=== PATIENT | female | born 1975 | race Caucasian/White ===

== ENCOUNTER 2024-08-15 05:55 | Emergency (ER) | payer OTHER, SELFPAY ==
--- NOTE | 2024-08-15 | ECG_ITS ---
Test Reason : NAUSEA/VOMITING Blood Pressure : */* mmHG Vent. Rate : 110 BPM Atrial Rate : 110 BPM P-R Int : 128 ms QRS Dur : 74 ms QT Int : 322 ms P-R-T Axes : 27 144 143 degrees QTcB Int : 435 ms Sinus tachycardia Lateral infarct , age undetermined Abnormal ECG No previous ECGs available Referred By: Generic ED Physician Electronically Signed By: Wilfrido Daley
--- NOTE | ~2024-08-15 | CT_ITS ---
EXAMINATION: CT ABDOMEN AND PELVIS WITH CONTRAST CLINICAL INFORMATION: Right upper quadrant pain. Gastric sleeve. Concerning biliary disease. COMPARISON: None available. TECHNIQUE: Multidetector volumetric images were obtained from the superior aspect of the liver through the pubic symphysis following administration 85 mL of Omnipaque 350 intravenous contrast. Sagittal and coronal reformatted images were obtained on the technologist's workstation. Oral contrast: No This CT examination was performed using dose optimization techniques as appropriate, variously including the following: *Automated exposure control *Adjustment of mA and/or kV according to patient size (this includes techniques or standardized protocols for targeted exams where dose is matched to indication/reason for exam; i.e. extremities or head) *Use of iterative reconstruction technique. DLP: 644 mGy centimeter. FINDINGS: LUNG BASES: Pulmonary patchy groundglass, lung bases. LIVER, GALLBLADDER, AND BILIARY TREE: Liver measures 17 cm. No focal mass. Portal veins, hepatic veins and intrahepatic portion of the IVC are patent. Gallbladder is fluid-filled nondistended. No pericholecystic fluid collection or gallbladder wall thickening. No intrahepatic or extrahepatic biliary ductal dilatation. PANCREAS: No focal mass. No main pancreatic ductal dilatation. No peripancreatic fluid collection. SPLEEN: 9 cm. No focal mass. ADRENAL GLANDS: No nodular lesions. KIDNEYS AND URETERS: Normal enhancement pattern of the kidneys. No renal mass. No hydronephrosis. BLADDER: Fluid-filled. GASTROINTESTINAL TRACT: Sutures along the fundus and proximal body of the stomach extending through the diaphragmatic hiatus/intrathoracic. Abundant stool. No intestinal obstruction pattern. Gas and fluid-filled small bowel loops. No pneumatosis intestinalis. Appendix is normal. No pneumoperitoneum. Scattered diverticula, left hemicolon. No fluid collections in the peritoneal cavity. No gross ascites. ABDOMINAL WALL: Small fat-containing left femoral hernia. LYMPH NODES: Nonspecific mildly prominent lymph nodes, mesenteric and retroperitoneum. VASCULAR: No aneurysm or dissection, abdominal aorta. Calcified plaques in the proximal common femoral arteries. PELVIC VISCERA: There is a 3 cm subserosal pedunculated soft tissue lesion to the right of the fundus of the uterus. There is a T-shaped contraceptive device in place. OSSEOUS STRUCTURES: Multilevel thoracolumbar spondylosis. Bilateral neuroforamina narrowing, L4-5 and to a lesser extent L5-S1 on a degenerative basis.. Sclerosis and the sacroiliac joints. CT/CT abdomen pelvis w IV con IMPRESSION: Status post gastric sleeve extending through the diaphragmatic hiatus/intrathoracic. Hepatomegaly. Consider mild enteritis in the correct clinical settings. 3 cm subserosal uterine fibroid. Atelectasis versus airspace disease, lung bases Spondylosis L4-5 and L5-S1.. Fleischner guidelines were followed. Electronically signed by: Pino García MD 08/15/2024 10:00 AM L[facility]
[2024-08-15 05:56] VITALS: BP 145/83; PULSE 124; RESP 20; TEMP 36.8; O2SAT 96; BMI 31.6
[2024-08-15 06:23] LABS: Hemoglobin 14.7 g/dl (12.0-16.0); Mean Corpuscular Hemoglobin 32.7 pg (27.0-33.0); Neutrophils Percent Auto 92.8 % (45-73); PLT CLUMP 1; SCAN SMEAR FLAG 1
[2024-08-15 06:24] LABS: Basophils Percent Auto 0.2 % (0-2); Hematocrit 41.8 % (37.0-47.0); Imm Gran Abs Auto 0.03 X10*3/uL (0.00-0.03); Imm Gran Pct Auto 0.3 % (0.0-0.4); Lymphocytes Absolute Auto 0.2 X10*3/uL (1.2-4.9); Lymphocytes Percent Auto 2.2 % (20-40); MANUAL DIFF FLAG SCAN; Mean Corpuscular HGB Conc 35.2 g/dl (31.0-35.0); Mean Corpuscular Volume 92.9 fL (80.0-98.0); Mean Platelet Volume 9.4 fL (9.4-12.3); Monocytes Absolute Auto 0.5 X10*3/uL (0.1-1.2); Monocytes Percent Auto 4.5 % (2-11); Neutrophils Absolute Auto 9.3 x10*3/uL (2.0-8.3); Red Cell Distribution Width 12.7 % (11.0-16.0)
--- NOTE | 2024-08-15 06:38 | ED_ITS ---
HPI - Nausea/Vomiting/Diarrhea General Chief complaint: Nausea/Vomiting/Diarrhea Stated complaint: vomiting, right abd pain, diarrhea Time Seen by Provider: 08/15/24 06:24 Source: patient Mode of arrival: ambulatory Limitations: no limitations History of Present Illness ED Provider: Dr. 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 Jones who presents emergency department for evaluation of nausea, vomiting, diarrhea, sweats and right upper quadrant abdominal pain radiating to her right shoulder. The patient states that at 01:00 hours she developed nausea and vomited multiple times. She also had multiple episodes of diarrhea. She developed sweats and chills. She then developed right upper quadrant pain that radiated to her right shoulder. The patient states she did have biliary colic 4 years ago and the pain felt similar to today's pain. She also states that she was having severe GERD/heartburn symptoms at this time. Patient states that she can does not do well with narcotic medications since they cause pruritus and hives. 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 She denies tobacco use. She rarely drinks alcohol. Social History Social History Advance Directives: Yes Advance Directives on File: No Do you have a plan to hurt others: No Plan Physical Exam 2 Vital Signs: Vital Signs: Last Vital Signs Temp 98.2 F 08/15/24 08:02 Pulse 95 08/15/24 08:02 Resp 18 08/15/24 08:02 BP 121/58 L 08/15/24 08:02 Pulse Ox 97 08/15/24 08:02 O2 Del Method Room Air 08/15/24 08:02 BMI result Body Mass Index 31.6 Vital signs revealed an elevated heart rate of 124, elevated blood pressure of 145/83. Exam: General: Awake, alert , patient was dry heaving when I was examining her Head: Normocephalic, atraumatic EENT: PERRL, Lids normal, sclera normal, conjunctiva normal, nose normal , ears normal, throat without erythema or exudates Neck: Supple, no adenopathy Lung: breath sounds symmetric, no wheezing, rales or rhonchi Chest: symmetric movement, nontender Heart: regular rate and rhythm, normal S1, S2 no murmurs or rubs Abdomen: soft, moderate right upper quadrant tenderness, mild to moderate epigastric tenderness, negative Alvarado sign, no rebound, no voluntary or involuntary guarding, normoactive bowel sounds Back: no vertebral tenderness, no CVAT Extremities: no deformities, moves all extremities symmetrically Neuro: Awake, alert, oriented, normal speech, cranial nerves intact, moves all extremities symmetrically Psych: Pleasant, cooperative Medications Administered Discontinued Medications Generic Name Dose Route Start Last Admin Trade Name Freq PRN Reason Stop Dose Admin Diphenhydramine HCl 25 mg 08/15/24 07:13 08/15/24 07:26 Diphenhydramine Hcl 50 Mg/Ml Vial IVPUSH 08/15/24 07:14 25 mg ONCE ONE Administration Morphine Sulfate 4 mg 08/15/24 07:13 08/15/24 07:25 Morphine Sulfate 4 Mg/Ml Cartridge IVPUSH 08/15/24 07:14 4 mg ONCE STA Administration Protocol Ondansetron HCl 4 mg 08/15/24 06:31 08/15/24 06:40 Ondansetron Hcl 4 Mg/2 Ml Vial IVPUSH 08/15/24 06:32 4 mg ONCE ONE Administration Pantoprazole Sodium 40 mg 08/15/24 06:31 08/15/24 06:40 Pantoprazole Sodium 40 Mg/10 Ml Vial IVPUSH 08/15/24 06:32 40 mg ONCE ONE Administration Medical Decision Making Medical Decision Making MDM Narrative: 49-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 Jones who presents emergency department for evaluation of nausea, vomiting, diarrhea, sweats and right upper quadrant abdominal pain radiating to her right shoulder. The patient states that at 01:00 hours she developed nausea and vomited multiple times. She also had multiple episodes of diarrhea. She developed sweats and chills. She then developed right upper quadrant pain that radiated to her right shoulder. She also complains of heartburn like symptoms consistent with her GERD. Vital signs revealed an elevated heart rate and elevated blood pressure. Physical exam revealed right upper quadrant tenderness with a negative Alvarado sign and epigastric tenderness. Differential diagnosis: ?Includes but is not limited to biliary colic, acute cholecystitis, pancreatitis, diverticulitis, gastritis, viral syndrome, anemia, electrolyte abnormalities Patient was initially treated with the following: Zofran 4 mg IV, Protonix 40 mg IV, normal saline x1 L Course: 08:07 My interpretation patient's laboratory evaluation is as follows: CBC was normal. CMP is pending re-collection secondary to hemolysis The patient got minimal relief with the above treatment. Patient states that morphine causes a histamine release in her and make sure itchy therefore she was given Benadryl 25 mg IV and morphine 4 mg IV with significant relief for pain. At the end of my shift, patient's laboratory evaluation in CT scan of the abdomen pelvis with IV contrast is pending therefore the patient's care was turned over to my colleague, Dr. Garrick Mckeon Admission/Observation Consideration of admission/observation: Escalation of care including admission/observation considered (Yes) Lab Data MDM Lab Attestation statement: I reviewed the patient's lab results. 08/15/24 06:18 08/15/24 06:18 Labs: Lab Results 08/15/24 08/15/24 08/15/24 Range/Units 06:14 06:18 06:40 WBC 10.0 (4.8-10.8) X10*3/uL RBC 4.50 (4.20-5.50) X10*6/uL Hgb 14.7 (12.0-16.0) g/dl Hct 41.8 (37.0-47.0) % MCV 92.9 (80.0-98.0) fL MCH 32.7 (27.0-33.0) pg MCHC 35.2 H (31.0-35.0) g/dl RDW 12.7 (11.0-16.0) % Plt Count 203 (160-400) X10*3/uL MPV 9.4 (9.4-12.3) fL Immature Gran % (Auto) 0.3 (0.0-0.4) % Neut % (Auto) 92.8 H (45-73) % Lymph % (Auto) 2.2 L (20-40) % Spalding % (Auto) 4.5 (2-11) % Eos % (Auto) 0.0 (0-4) % Baso % (Auto) 0.2 (0-2) % Lymph # (Auto) 0.2 L (1.2-4.9) X10*3/uL Spalding # (Auto) 0.5 (0.1-1.2) X10*3/uL Eos # (Auto) 0.0 (0.0-0.4) X10*3/uL Baso # (Auto) 0.0 (0.0-0.2) X10*3/uL Abs Immat Gran (auto) 0.03 (0.00-0.03) X10*3/uL Absolute Neuts (auto) 9.3 H (2.0-8.3) x10*3/uL Absolute Nucleated RBC 0.000 (0.0-0.012) X10*3/uL Nucleated RBC % (auto) 0.0 (0.0-0.2) /100WBC Smear Tech's Comments VERIFIED Hold Purple Top SEE NOTE Influenza Type A (PCR) NEGATIVE (Negative) Influenza Type B (PCR) NEGATIVE (Negative) RSV RNA Qual (PCR) NEGATIVE (Negative) SARS-CoV-2 RNA (RT-PCR) NEGATIVE (Negative) Chronic Conditions Patient?s care impacted by: Other (GERD) Discharge Plan Discharge Clinical Impression: Abdominal pain, Nausea & vomiting, Diarrhea Patient Disposition: Still a Patient Print Language: Estonian
[2024-08-15] MEDS: Pantoprazole Sodium 40 MG/10 ML VIAL IVPUSH (06:40)
[2024-08-15] MEDS: ondansetron HCL 4 MG/2 ML VIAL IVPUSH (06:40)
[2024-08-15 06:43] LABS: Platelet Count 203 X10*3/uL (160-400)
[2024-08-15 06:44] LABS: SLIDE REVIEW VERIFIED
[2024-08-15 07:01] LABS: Influenza A PCR NEGATIVE (Negative); Influenza B PCR NEGATIVE (Negative); Resp Syncy Virus RNA Qual PCR NEGATIVE (Negative); SARS COV2 PCR INHOUSE NEGATIVE (Negative)
[2024-08-15 07:12] LABS: Estimated Glomerular Filt Rate > 60
[2024-08-15] MEDS: Morphine Sulfate 4 MG/ML CARTRIDGE IVPUSH (07:25)
[2024-08-15] MEDS: diphenhydrAMINE HCL 50 MG/ML VIAL 25 MG IVPUSH (07:26)
[2024-08-15 08:02] VITALS: BP 121/58; PULSE 95; RESP 18; TEMP 36.8; O2SAT 97
[2024-08-15 08:33] LABS: Alanine Aminotransferase 18 U/L (0-31); Albumin Level 3.6 g/dL (3.5-5.0); Alkaline Phosphatase 58 U/L (39-117); Anion Gap 9 (12-20); Aspartate Amino Transferase 24 U/L (5-31); Bilirubin Direct 0.3 mg/dL (0.0-0.5); Bilirubin Total 0.8 mg/dL (0.0-1.0); Blood Urea Nitrogen 14 mg/dL (9-16); Carbon Dioxide 22 mmol/L (22-29); Chloride 115 mmol/L (96-108); Creatinine Clr Calc Pharmacy 92.2; Glucose Random 113 mg/dL (60-115); Lipase 21 U/L (8-78); Sodium 142 mmol/L (135-145); Total Protein 5.9 g/dL (6.5-8.0)
[2024-08-15] MEDS: iohexoL 350 MG/ML 100 ML INFUS..BTL IV (09:13)
[2024-08-15 09:39] LABS: HCG Quantitative 3 mIU/mL
[2024-08-15 09:48] LABS: Appearance Urine Clear; Color Urine Dark Yellow; Glucose Urine UA Negative (Negative); Leukocyte Esterase Urine Negative (Negative); Nitrite Urine Negative (Negative); PH 5.5 (5.0-9.0); Specific Gravity - Urine >= 1.030 (1.005-1.025); Urine Blood Negative (Negative); Urine Ketones Trace mg/dL (Negative); Urine Protein Negative (Neg-Trace)
--- NOTE | 2024-08-15 09:57 | PC.NURSE ---
Assumed care of this patient at 0900, patient resting quietly on stretcher at this time, denies pain, waiting on CT scan results.
[2024-08-15 10:27] VITALS: BP 133/72; PULSE 97; RESP 16; TEMP 36.5; O2SAT 97
== END 2024-08-15 10:28 | disposition home or self-care (01) ==
PROVIDERS: Emergency Medicine Emergency Medical Services; Emergency Provider Student in an Organized Health Care Education/Training Program; PCP Internal Medicine
DX: R10.11 Right upper quadrant pain (principal); R11.2 Nausea with vomiting, unspecified; M25.511 Pain in right shoulder; R10.2 Pelvic and perineal pain; R00.0 Tachycardia, unspecified; Z98.84 Bariatric surgery status; Z79.899 Other long term (current) drug therapy; Z03.818 Encounter for observation for suspected exposure to other biological agents ruled out
CPT/HCPCS: 0241U; 74177; 80053; 81003; 82248; 83690; 84702; 85025; 93005; 96374; 96375; 99284; 99285; J1200; J2270; J2405; J2470; Q9967

== ENCOUNTER → 2024-08-15 06:12 | Outpatient (BNV) | payer OTHER, SELFPAY | PROVIDERS: Emergency Provider Student in an Organized Health Care Education/Training Program; PCP Internal Medicine; Visit Provider Internal Medicine Cardiovascular Disease | DX: R00.0 Tachycardia, unspecified (principal); R94.31 Abnormal electrocardiogram [ECG] [EKG] | CPT/HCPCS: 93010 ==

== ENCOUNTER → 2024-08-15 06:32 | Outpatient (BNV) | payer SELFPAY | PROVIDERS: Emergency Provider Student in an Organized Health Care Education/Training Program; PCP Internal Medicine; Visit Provider Radiology Diagnostic Radiology | DX: D25.2 Subserosal leiomyoma of uterus (principal); R16.0 Hepatomegaly, not elsewhere classified; M47.817 Spondylosis without myelopathy or radiculopathy, lumbosacral region | CPT/HCPCS: 74177 ==

== ENCOUNTER 2024-11-14 07:28 | Outpatient (REF) | payer OTHER, SELFPAY ==
--- OUTSIDE RECORDS SUMMARY | 2024-11-14 07:32 | XMS_ITS | Clinical Summary ---
Author Organization [facility] Address [address] [place] [address] Care Team Providers Care Toolmaker Name Role Phone Homer Neal Primary Care Provider [phone] Allergies Active Allergy Reactions Criticality Noted Date Comments Codeine Hives 07/31/2021 Hydromorphone Hives 07/31/2021 Oxycodone Hives 07/31/2021 Medications omeprazole (PriLOSEC) 20 mg capsule Take 20 mg by mouth once a day. Active vitamin B complex-vitamin C tablet Take 1 tablet by mouth once a day. Active Social History Tobacco Use Types Packs/Day Years Used Date Smoking Tobacco: Never Smokeless Tobacco: Never Alcohol Use Standard Drinks/Week Comments Yes 0 (1 standard drink = 0.6 oz pur e alcohol) social Comments Unknown Sex and Gender Information Value Date Recorded Sex Assigned at Not on file Legal Sex Female 11:36 AM EST Gender Identity Not on file Sexual Orientation Not on file Last Filed Vital Signs Vital Sign Reading Time Taken Comments Blood Pressure 136/72 07/31/2021 11:54 AM EST Pulse 90 07/31/2021 11:54 AM EST Temperature 36.5 ??C (97.7 ??F) 07/31/2021 11:[address] Respiratory Rate 18 07/31/2021 11:54 AM EST Oxygen Saturation 100% 07/31/2021 11:54 AM EST Inhaled Oxygen Concentration - - Weight 61.2 kg (135 lb) 07/31/2021 11:54 AM EST Height - - Body Mass Index - - Plan of Treatment Health Maintenance Due Date Last Done Comments Cervical Cancer Screening 1973 Cologuard 1973 Colon Cancer Screening 1973 Colonoscopy 1973 FOBT / Fit Test 1973 HIV Screening 1973 HPV and Pap Smear 1973 Pap Smear 1973 Sigmoidoscopy 1973 Hepatitis B Vaccines (1 of 3 - 19+ 3-dose series) 1992 Pneumococcal Vaccine: 50+ Ye ars (1 of 1 - PCV) 2023 Zoster Vaccines (1 of 2) 2023 COVID-19 Vaccine (3 - season) 04/01/202407/2021, 07/22/2020 Alcohol/Substance Use Screening 08/01/2024 Influenza Vaccine (Season Ended) 2025 05/30/2021, 05/11/2020, 05/31/2019 DTaP,Tdap,and Td Vaccines (2 - Td or Tdap) 12/26/2030 12/26/2020 RSV Vaccine (60+ years old a nd patients) (1 - 1-dose 75+ series) 2048 Insurance [employer] Care Teams Toolmaker Relationship Specialty Start Date End Date Homer Neal [address] [place] [phone] PCP - General Internal Medicine 07/31/21
--- OUTSIDE RECORDS SUMMARY | 2024-11-14 07:32 | XMS_ITS | Referral Summary ---
Author Organization [facility] Address [address] [place] [address] Care Team Providers Care Dehydrogenation Operator Name Role Phone Homer Neal Primary Care Provider [phone] Allergies Active Allergy Reactions Criticality Noted Date [...] Mass Index - - Plan of Treatment Not on file Insurance [employer] Care Teams Dehydrogenation Operator Relationship Specialty Start Date End Date Homer Neal [address] [place] [phone] PCP - General Internal Medicine 07/31/21
--- OUTSIDE RECORDS SUMMARY | 2024-11-14 07:32 | XMS_ITS | Clinical Summary ---
Author Organization [facility] Address [address] [place] [address] Care Team Providers Care Managing Broker Name Role Phone Homer Neal MD Primary Care Provider [phone] Medical History Medical History Date Comments Depression DX:Depression Acid reflux DX:Acid reflux Uterine fibroid DX:Uterine fibro id Hyperchloremia DX:Hyperchloremi a Bulimia nervosa 02/18/2020 DX:Bulimia nervo sa IBS (irritable bowel syndrome) 02/18/2020 D X:IBS (irritable bowel syndrome) Family History Medical History Relation Name Comments Suicide Attempts Father Diabetes Maternal Grandmother Thyroid disease Mother hyperlipidem ia, psoriatic arthritis, breast cancer Hyperlipidemia Sister Pancreatic cancer Uncle Relation Name Status Comments Father Maternal Grandmother Mother Alive Sister Uncle Social History Tobacco Use Types Packs/Day Years Used Date Smoking Tobacco: Former Smokeless Tobacco: Former Alcohol Use Standard Drinks/Week Comments Yes 0 (1 standard drink = 0.6 oz pur e alcohol) Comments Unknown Sex and Gender Information Value Date Recorded Sex Assigned at Not on file Legal Sex Female 8:28 PM EST Gender Identity Not on file Sexual Orientation Not on file Obstetrics History Plan of Treatment Health Maintenance Due Date Last Done Comments Breast Cancer Screening 1973 Hepatitis B Vaccines (1 of 3 - 19+ 3-dose series) 1992 Cervical Cancer Screening: P ap Smear 1994 Cholesterol Screening (Lipid Panel) 08/31/2019 Colorectal Cancer Screening: Colonoscopy 08/31/2019 Depression Screening 08/31/2019 HIV Screening 08/31/2019 Hepatitis C Screening 08/31/2019 Social Influencers of Health Screening 08/31/2019 Pneumococcal Vaccine: 50+ Ye ars (1 of 1 - PCV) 2023 Zoster Vaccines (1 of 2) 2023 COVID-19 Vaccine (1 - 2023-2 5 season) 2024 Influenza Vaccine (Season Ended) 2025 DTaP,Tdap,and Td Vaccines (2 - Td or Tdap) 12/26/2030 12/26/2020 HIB Vaccines Aged Out No longer eligi ble based on patient's age to complete this topic HPV Vaccines Aged Out No longer eligi ble based on patient's age to complete this topic Hepatitis A Vaccines Aged Out No long er eligible based on patient's age to complete this topic IPV Vaccines Aged Out No longer eligi ble based on patient's age to complete this topic MMR Vaccines Aged Out No longer eligi ble based on patient's age to complete this topic Meningococcal ACWY Vaccine Aged Out N o longer eligible based on patient's age to complete this topic Meningococcal B Vaccine Aged Out No l onger eligible based on patient's age to complete this topic Pneumococcal Vaccine: Pediat rics (0 to 5 Years) and At-Risk Patients (6 to 64 Years) Aged Out No longer eligi ble based on patient's age to complete this topic RSV Immunization Patients Un tosin 20 months Aged Out No longer eligible b ased on patient's age to complete this topic Varicella Vaccines Aged Out No longer eligible based on patient's age to complete this topic Care Teams Managing Broker Relationship Specialty Start Date End Date Homer Neal MD [address] [place], [place] [address] [phone] PCP - General Internal Medicine 02/08/19
[2024-11-14 09:23] LABS: Alanine Aminotransferase 28 U/L (0-31); Albumin Level 4.1 g/dL (3.5-5.0); Alkaline Phosphatase 58 U/L (39-117); Anion Gap 12 (12-20); Aspartate Amino Transferase 23 U/L (5-31); Bilirubin Total 0.6 mg/dL (0.0-1.0); Blood Urea Nitrogen 16 mg/dL (9-16); Calcium 9.4 mg/dL (8.4-10.2); Carbon Dioxide 25 mmol/L (22-29); Chloride 109 mmol/L (96-108); Cholesterol 249 mg/dL (<200); Estimated Glomerular Filt Rate > 60; Glucose Random 76 mg/dL (60-115); HDL Cholesterol 88 mg/dL (>40); LDL Cholesterol Calculated 144 mg/dL (<100); Potassium 4.1 mmol/L (3.3-5.1); Sodium 142 mmol/L (135-145); Total Protein 6.7 g/dL (6.5-8.0); Triglycerides 88 mg/dL (<150)
[2024-11-14 09:35] LABS: Estimated Average Glucose 94 mg/dL; Hemoglobin A1C 107.3252 umol/L; Hemoglobin A1c % 4.9 % (<6.0); Total Hemoglobin (HGBA1C) 3613.2447 umol/L
== END 2024-11-14 07:29 | disposition home or self-care (01) ==
LOC: HO.LAB 07:28
PROVIDERS: PCP Nurse Practitioner Family; Visit Provider Nurse Practitioner Family
DX: E66.9 Obesity, unspecified (principal); Z13.1 Encounter for screening for diabetes mellitus
CPT/HCPCS: 36415; 80053; 80061; 83036